=== PATIENT | female | born 2005 | race Hispanic/Latino ===

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

== ENCOUNTER 2024-09-07 23:15 | Day surgery (SDC) | payer OTHER ==
[2024-09-07 23:41] VITALS: BMI 24.7
[2024-09-08] MEDS ORDERED: hydrALAZINE 20 MG/ML VIAL SLOW IVP PRN (00:09)
== END 2024-09-08 01:45 | disposition home or self-care (01) ==
LOC: CSHLD/OP 23:15
PROVIDERS: ATTEND Family Medicine
DX: O26.853 Spotting complicating pregnancy, third trimester (principal); O47.1 False labor at or after 37 completed weeks of gestation; Z3A.39 39 weeks gestation of pregnancy; Z79.899 Other long term (current) drug therapy
CPT/HCPCS: 99283

== ENCOUNTER 2024-09-08 15:17 | Inpatient (IN) | payer OTHER ==
[2024-09-08 15:44] VITALS: BMI 24.7
[2024-09-08] MEDS ORDERED: Tranexamic Acid 1,000 MG/10 ML VIAL IVP PRN (16:07)
[2024-09-08] MEDS ORDERED: Carboprost 250 MCG/ML AMP IM PRN (16:07)
[2024-09-08] MEDS ORDERED: Misoprostol 200 MCG TAB PR PRN (16:07)
[2024-09-08] MEDS ORDERED: Diphenoxylate HCl/Atropine Tablet PO PRN (16:07)
[2024-09-08] MEDS ORDERED: hydrALAZINE 20 MG/ML VIAL SLOW IVP PRN (16:07)
[2024-09-08] MEDS ORDERED: Acetaminophen 500 MG TAB PO PRN (16:07)
[2024-09-08] MEDS ORDERED: Bicitra 30 ML UDCUP PO PRN (16:07)
[2024-09-08] MEDS ORDERED: Promethazine HCl 25 MG/ML VIAL IM PRN ×2 (16:07→22:10)
[2024-09-08] MEDS ORDERED: Famotidine/PF 20 mg/2ml Vial SLOW IVP PRN (16:07)
[2024-09-08] MEDS ORDERED: Ondansetron PF 4 MG/2 ML Vial IVP PRN ×2 (16:07→22:10)
[2024-09-08] MEDS ORDERED: fentaNYL 50 mcg/mL 1 mL Vial SLOW IVP PRN (16:07)
[2024-09-08] MEDS ORDERED: Methylergonovine 0.2 MG/ML VIAL IM PRN (16:07)
[2024-09-08] MEDS ORDERED: Oxytocin 30 units/NS 500 ML 500 ML IV SCH (16:15)
[2024-09-08 16:40] LABS: Hematocrit 29.5 % (34.9-44.5); Hemoglobin 9.8 g/dL (12.0-15.5); Mean Corpuscular HGB CONC 33.2 g/dL (32.0-36.0); Mean Corpuscular Volume 81.3 fL (81.6-98.3); Mean Platelet Volume 11.7 fL (7.4-10.4); Platelet Count 221 10x3/uL (150-450); RBC Distribution Width 15.4 % (11.5-14.5); Red Blood Cell (RBC) Count 3.63 10x6/uL (3.90-5.03); White Blood Cell (WBC) Count 17.3 10x3/uL (3.5-10.5)
[2024-09-08] MEDS: Oxytocin 30 units/NS 500 ML 500 ML IV SCH (17:00)
[2024-09-08] MEDS: Lactated Ringer's 1,000 ML IV SCH (17:00)
[2024-09-08 17:09] LABS: HBsAg Index 0.21 S/CO (0-0.99); Hep B Surf Ag - L&D Non-Reactive S/CO (NonReactive)
[2024-09-08 17:11] LABS: Syphilis Antibody Nonreactive (Nonreactive); Syphilis Antibody Index 0.05 S/CO (<1.00 Non-Reactive)
[2024-09-08] MEDS ORDERED: ePHEDrine Sulfate 50 MG/10 ML VIAL SLOW IVP PRN (22:10)
[2024-09-08] MEDS ORDERED: Naloxone HCl 0.4 mg/ml Vial IVP PRN ×2 (22:10)
[2024-09-08] MEDS ORDERED: Moisturizing Cream (Eucerin) 113 GM JAR TOP PRN (22:10)
[2024-09-08] MEDS ORDERED: Lactated Ringer's 500 ML IV PRN (22:10)
[2024-09-08] MEDS ORDERED: diphenhydrAMINE 50 MG/ML VIAL IVP PRN (22:10)
[2024-09-08] MEDS ORDERED: Communication Order-Pharmacy FS SCH (22:15)
[2024-09-08] MEDS ORDERED: fentaNYL 2 mcg/Ropivacaine 0.2% Epidural 100 ML CADD EPIDURAL SCH (22:15)
[2024-09-09] MEDS: CEFAZOLIN 2 GM in Sodium Chloride 0.9% 100 ML IVPB SCH (01:33)
[2024-09-09] MEDS ORDERED: Azithromycin 1,000 MG in Sodium Chloride 0.9% 500 ML IVPB SCH (02:00)
[2024-09-09] MEDS: Azithromycin 500 MG in Sodium Chloride 0.9% 250 ML 250 ML IVPB SCH (03:33)
[2024-09-09] MEDS: Acetaminophen 325 MG TAB PO PRN (03:44)
[2024-09-09] MEDS ORDERED: Lanolin Ointment 7 GM TUBE TOP PRN (04:46)
[2024-09-09] MEDS ORDERED: Ondansetron PF 4 MG/2 ML Vial IVP PRN (04:46)
[2024-09-09] MEDS ORDERED: Boostrix 0.5 ML (Tdap) VIAL (>/=7 yrs of age) IM ONE (04:46)
[2024-09-09] MEDS ORDERED: Oxytocin 30 units/NS 500 ML 500 ML IV SCH (04:46)
[2024-09-09] MEDS ORDERED: Milk Of Magnesia 30 ML UDCUP PO PRN (04:46)
[2024-09-09] MEDS ORDERED: Promethazine HCl 25 MG/ML VIAL IM PRN (04:46)
[2024-09-09] MEDS ORDERED: Benzocaine-Menthol 82.5 ML CAN TOP PRN (04:46)
[2024-09-09] MEDS ORDERED: diphenhydrAMINE 25 MG CAP PO PRN (04:46)
[2024-09-09] MEDS ORDERED: hydrALAZINE 20 MG/ML VIAL SLOW IVP PRN (04:46)
[2024-09-09] MEDS ORDERED: Bisacodyl 10 MG SUPP PR PRN (04:46)
[2024-09-09] MEDS: fentaNYL/Ropivacaine Epidural 100 ML ONE (04:59)
[2024-09-09] MEDS: Ibuprofen 800 MG TAB PO SCH (06:19)
[2024-09-09] MEDS ORDERED: Bupivacaine PF 0.5% 30 ML VIAL ONE (07:00)
[2024-09-09] MEDS ORDERED: ePHEDrine Sulfate 50 MG/10 ML VIAL ONE (07:00)
[2024-09-09] MEDS: Docusate 100 MG CAP PO SCH (09:06)
[2024-09-09] MEDS: Prenatal Vitamin 1 TAB PO SCH (09:06)
[2024-09-09] MEDS: Ferrous Sulfate 325 MG TAB PO SCH (09:06)
[2024-09-10 07:36] VITALS: BP 109/65; TEMP 97.8
[2024-09-10] MEDS: HYDROcodone/Acetaminophen 5/325 mg Tablet PO PRN (08:23)
== END 2024-09-10 17:20 | disposition home or self-care (01) | DRG 807 ==
LOC: CSHLD/OP 15:17 → CSHLD 15:49 → CSHPP 09-09 04:25
PROVIDERS: ADMIT Family Medicine; ATTEND Family Medicine
PROC: 10E0XZZ Delivery of Products of Conception, External Approach (ICD-10-PCS; principal; 2024-09-09)
DX: O42.02 Full-term premature rupture of membranes, onset of labor within 24 hours of rupture (principal); Z37.0 Single live birth; Z3A.39 39 weeks gestation of pregnancy; Z79.82 Long term (current) use of aspirin
CPT/HCPCS: 51702; 85027; 86780; 86850; 86900; 86901; 87340; 88307; 99285; J0456; J0665; J2590; J7050; J7120

== ENCOUNTER 2025-09-08 20:39 | Day surgery (SDC) | payer OTHER ==
[2025-09-08] MEDS ORDERED: hydrALAZINE 20 MG/ML VIAL SLOW IVP PRN (21:40)
[2025-09-08 22:00] LABS: Specific Gravity, Urine 1.010 (1.005-1.030)
[2025-09-08 22:07] LABS: Glucose, Urine (Dipstick) Unable to Interpret mg/dL (Negative); Leukocyte Unable to Interpret (Negative); Protein, Urine (Dipstick) Unable to Interpret mg/dl (Neg-Trace)
[2025-09-08 22:09] LABS: CAUTI Indications for Culture Pregnancy; RBC/HPF 0-3 HPF (0-3)
[2025-09-08 22:10] LABS: Bacteria/HPF 3+ HPF (None Seen); Urine Culture Reflex Yes Yes
[2025-09-08] MEDS: Cephalexin 500 MG CAP PO SCH (23:20)
== END 2025-09-08 23:50 | disposition home or self-care (01) ==
LOC: CSHLD/OP 20:39
PROVIDERS: ATTEND Family Medicine
DX: O23.43 Unspecified infection of urinary tract in pregnancy, third trimester (principal); R31.9 Hematuria, unspecified; Z3A.31 31 weeks gestation of pregnancy
CPT/HCPCS: 76770; 81001; 87086; 99285

== ENCOUNTER 2025-09-25 20:12 | Inpatient (IN) | payer OTHER ==
[2025-09-25 20:35] VITALS: BMI 24.4
[2025-09-25] MEDS ORDERED: hydrALAZINE 20 MG/ML VIAL SLOW IVP PRN ×2 (20:54→21:37)
[2025-09-25 21:06] LABS: Fetal Membranes Rupture RUPTURE DETECTED (No Rupture)
[2025-09-25] MEDS ORDERED: Ondansetron PF 4 MG/2 ML Vial IVP PRN (21:37)
[2025-09-25] MEDS ORDERED: Oxytocin 30 units/NS 500 ML 500 ML IV SCH (21:45)
[2025-09-25 22:21] LABS: Hematocrit 26.4 % (34.9-44.5); Hemoglobin 8.7 g/dL (12.0-15.5); Mean Corpuscular Hemoglobin 25.7 pg (27.0-33.0); Mean Corpuscular Volume 77.9 fL (81.6-98.3); Platelet Count 255 10x3/uL (150-450); Red Blood Cell (RBC) Count 3.39 10x6/uL (3.90-5.03); White Blood Cell (WBC) Count 11.37 10x3/uL (3.5-10.5)
[2025-09-25 23:37] LABS: Hep B Surf Ag - L&D Non-Reactive S/CO (NonReactive)
[2025-09-25 23:39] LABS: Syphilis Antibody Index 0.09 S/CO (<1.00 Non-Reactive)
[2025-09-26] MEDS: NIFEdipine 10 MG CAP PO SCH (00:40)
[2025-09-26] MEDS: NIFEdipine 10 MG CAP PO PRN (06:08)
[2025-09-26] MEDS: Acetaminophen 500 MG TAB PO PRN (16:37)
[2025-09-27 00:10] LABS: Chlamydia by PCR, Vaginal Swab Not Detected (NotDetected); GC by PCR, Vaginal Swab Not Detected (NotDetected)
[2025-09-27] MEDS: fentaNYL/Ropivacaine Epidural 100 ML ONE (11:21)
[2025-09-27] MEDS ORDERED: diphenhydrAMINE 50 MG/ML VIAL IVP PRN (11:44)
[2025-09-27] MEDS ORDERED: Ondansetron PF 4 MG/2 ML Vial IVP PRN ×2 (11:44→16:32)
[2025-09-27] MEDS ORDERED: Acetaminophen 325 MG TAB PO PRN (11:44)
[2025-09-27] MEDS ORDERED: Communication Order-Pharmacy FS SCH (11:45)
[2025-09-27] MEDS ORDERED: fentaNYL 2 mcg/Ropivacaine 0.2% Epidural 100 ML CADD EPIDURAL SCH (11:45)
[2025-09-27] MEDS: Ibuprofen 800 MG TAB PO SCH ×2 (15:38→21:43)
[2025-09-27] MEDS ORDERED: Preparation H Ointment 28 GM TUBE PR PRN (16:32)
[2025-09-27] MEDS ORDERED: hydrALAZINE 20 MG/ML VIAL SLOW IVP PRN (16:32)
[2025-09-27] MEDS ORDERED: diphenhydrAMINE 25 MG CAP PO PRN (16:32)
[2025-09-27] MEDS ORDERED: Lanolin Ointment 7 GM TUBE TOP PRN (16:32)
[2025-09-27] MEDS ORDERED: Bisacodyl 10 MG SUPP PR PRN (16:32)
[2025-09-27] MEDS ORDERED: Milk Of Magnesia 30 ML UDCUP PO PRN (16:32)
[2025-09-27] MEDS ORDERED: HYDROcodone/Acetaminophen 5/325 mg Tablet PO PRN (16:32)
[2025-09-27] MEDS ORDERED: Benzocaine-Menthol 82.5 ML CAN TOP PRN (16:32)
[2025-09-27] MEDS: Tranexamic Acid 1,000 MG/10 ML VIAL ONE (17:09)
[2025-09-27] MEDS: Methylergonovine 0.2 MG/ML VIAL ONE ×2 (17:09)
[2025-09-27] MEDS: CEFAZOLIN 2 GM VIAL ONE (17:09)
[2025-09-27] MEDS: Carboprost 250 MCG/ML AMP ONE (17:09)
[2025-09-27] MEDS: Azithromycin 500 MG VIAL ONE (17:09)
[2025-09-27] MEDS: Ferrous Sulfate 325 MG TAB PO SCH (17:21)
[2025-09-27] MEDS ORDERED: Bupivacaine/Epinephrine 0.25% 30 ML VIAL ONE (17:23)
[2025-09-28 00:23] LABS: Group B Streptococcus by PCR Not Detected (NotDetected)
[2025-09-29 08:10] VITALS: BP 114/73; TEMP 98.5
== END 2025-09-29 18:15 | disposition home or self-care (01) | DRG 805 ==
LOC: CSHLD/OP 20:12 → CSHLD 21:16 → CSHPP 09-27 16:34
PROVIDERS: ADMIT Family Medicine; ATTEND Family Medicine
PROC: 10E0XZZ Delivery of Products of Conception, External Approach (ICD-10-PCS; principal; 2025-09-27)
PROC: 4A1HXCZ Monitoring of Products of Conception, Cardiac Rate, External Approach (ICD-10-PCS; 2025-09-27)
PROC: 10H07YZ Insertion of Other Device into Products of Conception, Via Natural or Artificial Opening (ICD-10-PCS; 2025-09-27)
PROC: 3E03329 Introduction of Other Anti-infective into Peripheral Vein, Percutaneous Approach (ICD-10-PCS; 2025-09-27)
DX: O42.113 Preterm premature rupture of membranes, onset of labor more than 24 hours following rupture, third trimester (principal); O60.14X0 Preterm labor third trimester with preterm delivery third trimester, not applicable or unspecified; Z37.0 Single live birth; Z3A.33 33 weeks gestation of pregnancy
CPT/HCPCS: 51702; 76815; 84112; 85027; 86780; 86850; 86900; 86901; 87340; 87491; 87591; 87653; 99285; J0290; J0456; J0702; J7030; J7120

== ENCOUNTER 2025-10-08 21:53 | Emergency (ER) | payer OTHER | END 2025-10-08 22:12 | disposition home or self-care (01) | LOC: CSHERS 21:53 | DX: L50.0 Allergic urticaria (principal) | CPT/HCPCS: 99282 ==